=== PATIENT | female | born 1940 | race Caucasian/White ===

== ENCOUNTER 2019-10-01 15:20 | Inpatient (IN) | payer BC, OTHER ==
[~2019-10-01] VITALS: Ht 154.9 cm; Wt 33.5 kg
[2019-10-01] MEDS ORDERED: SODIUM CHLORIDE 0.9% 1,000 ML IVB ONE (16:20)
[2019-10-01 16:34] LABS: Basophils # (auto) 0 10 ^3/uL (0-0.2); Basophils % (auto) 0.4 % (0.0-2.0); Eosinophils # (auto) 0 10 ^3/uL (0-0.8); Eosinophils % (auto) 0.5 % (0.0-7.0); Hematocrit 46.3 % (36.0-46.0); Hemoglobin 15.2 g/dL (12.2-16.2); Lymphocytes # (auto) 0.6 10 ^3/uL (0.4-5.4); Lymphocytes % (auto) 6.8 % (10.0-50.0); Mean Corpuscular Hemoglobin 32.7 pg (28.0-32.0); Mean Corpuscular Hgb Conc. 32.7 g/dL (32.0-36.0); Mean Corpuscular Volume 99.9 fL (80.0-100.0); Monocytes # (auto) 0.4 10 ^3/uL (0-1.3); Monocytes % (auto) 5.1 % (0.0-12.0); Neutrophils # (auto) 7.6 10 ^3/uL (1.6-8.6); Neutrophils % (auto) 87.2 % (37.0-80.0); Platelet Count (auto) 244 10^3/uL (140-450); Red Blood Cells 4.64 10^6/uL (4.0-5.20); Red Cell Distribution Width 15.2 % (11.8-14.3); White Blood Cell 8.8 10^3/uL (4.4-10.8)
[2019-10-01 16:42] LABS: Albumin 3.4 g/dL (3.4-5.0); Calcium 8.6 mg/dL (8.5-10.1); Potassium 3.6 mmol/L (3.5-5.1)
[2019-10-01 16:43] LABS: INR 1.09 (0.9-1.15)
[2019-10-01 16:47] LABS: BUN/Creatinine Ratio 55.6; Bilirubin, Total 0.7 mg/dL (0.2-1.0); Total Protein 6.6 g/dL (6.4-8.2)
[2019-10-01 17:12] LABS: Magnesium 1.6 mg/dL (1.6-2.6)
[2019-10-01] MEDS ORDERED: NITROGLYCERIN 0.4 MG SL TAB SL PRN ×2 (18:30→23:30)
[2019-10-01] MEDS ORDERED: MORPHINE SULF INJ 2 MG/ML SYRINGE 1ML IV PRN ×2 (18:30→23:30)
[2019-10-01] MEDS ORDERED: NICOTINE 21MG/24 HR TOPICAL PATCH TD ONE (19:15)
[2019-10-01 19:45] VITALS: BP 163/77
--- NOTE | 2019-10-01 19:45 | NUR ---
Telemetry admit from ER DOMONIQUE SHETH admitted to Telemetry unit after SBAR received. Patient oriented to CRISTOFER NIELSEN, RN primary RN,[place] unit, room 295, bed A, and unit policies regarding patient care and visiting hours. Patient now on continuous telemetry monitoring, tele box #72 and telemetry reading on arrival to unit is NSR 87. Patient placed on bedside oxygen, weighed by bed scale and encouraged to call if they need something. All questions and concerns addressed, patient verbalized understanding. Note: Patient admitted with left hip fracture. She is alert and oriented of person, Place, time and situation. No edema noted to left lower extremity. Patient able to wiggle left toes without difficulty. Complains of left hip pain with movement only. Bed in low position and call light in reach.
--- NOTE | 2019-10-01 21:00 | NUR ---
Napoles catheter insertion Admission's order included Napoles Catheter insertion. Patient educated on catheter and reason for insertion. All questions answered. Napoles catheter 16 gauge Arabic inserted with clean sterile technique. Patient tolerated well.
[2019-10-01 22:00] VITALS: BP 163/77
[2019-10-01 22:16] LABS: Urine Bacteria FEW /hpf (None Seen); Urine Blood TRACE /uL (Negative); Urine Mucus FEW (None Seen); Urine Specific Gravity 1.026 (1.001-1.035); Urine WBC 5 /hpf (0 - 5)
[2019-10-01] MEDS ORDERED: CALCIUM W/VIT D (600MG/400IU) TAB PO ONE (23:30)
[2019-10-01] MEDS ORDERED: HYDROcodone-ACET 5/325MG TAB PO PRN (23:30)
[2019-10-01] MEDS ORDERED: hydrALAZINE HCL 20 MG/ML VL IV PRN (23:30)
[2019-10-01] MEDS ORDERED: DOCUSATE SOD 100 MG CAP PO PRN (23:30)
[2019-10-01] MEDS ORDERED: cefTRIAXone 1GM/50ML D5W 50 ML IV ONE (23:30)
[2019-10-01] MEDS ORDERED: FAMOTIDINE 20 MG TAB PO ONE (23:30)
[2019-10-01] MEDS ORDERED: TEMAZEPAM 15 MG CAP PO PRN (23:30)
[2019-10-01] MEDS ORDERED: ONDANSETRON HCL 4 MG/2 ML VIAL IV PRN (23:30)
[2019-10-01] MEDS: SODIUM CHLORIDE 0.9% 1,000 ML IV SCH (23:30)
[2019-10-01] MEDS ORDERED: ALUM & MAG HYDROX-SIMETH LIQ(MAALOX) 30 ML PO PRN (23:30)
[2019-10-01] MEDS ORDERED: ACETAMINOPHEN 325 MG TAB PO PRN (23:30)
[2019-10-01 23:41] VITALS: BP 163/77
[2019-10-01] MEDS ORDERED: MAGNESIUM SULFATE 1GM/100ML 100 ML IV ONE (23:45)
[2019-10-01] MEDS ORDERED: IPRATROPIUM BROM 0.5 MG/2.5ML INH SOL NEB PRN (23:45)
[2019-10-01] MEDS ORDERED: ALBUTEROL SULF 2.5 MG/0.5ML(0.5%) NEB SOLN NEB PRN (23:45)
[2019-10-02 01:20] LABS: Cholesterol 166 mg/dL (< 200); HDL Cholesterol 42 mg/dL (40-59); LDL Cholesterol 112 mg/dL (< 100); Triglycerides 118 mg/dL (< 150)
[2019-10-02 05:00] VITALS: BP 124/70
[2019-10-02 06:06] LABS: Basophils # (auto) 0 10 ^3/uL (0-0.2); Basophils % (auto) 0.6 % (0.0-2.0); Eosinophils # (auto) 0.2 10 ^3/uL (0-0.8); Eosinophils % (auto) 2.5 % (0.0-7.0); Hematocrit 40.4 % (36.0-46.0); Hemoglobin 13.4 g/dL (12.2-16.2); Lymphocytes % (auto) 12.1 % (10.0-50.0); Mean Corpuscular Hemoglobin 32.7 pg (28.0-32.0); Mean Corpuscular Hgb Conc. 33.1 g/dL (32.0-36.0); Mean Corpuscular Volume 98.9 fL (80.0-100.0); Monocytes # (auto) 0.6 10 ^3/uL (0-1.3); Monocytes % (auto) 7.2 % (0.0-12.0); Neutrophils # (auto) 6.2 10 ^3/uL (1.6-8.6); Neutrophils % (auto) 77.6 % (37.0-80.0); Platelet Count (auto) 227 10^3/uL (140-450); Red Blood Cells 4.08 10^6/uL (4.0-5.20)
[2019-10-02 06:22] LABS: INR 1.08 (0.9-1.15); Partial Thromboplastin Time 27.4 sec (23.0-31.2)
[2019-10-02 06:56] LABS: Albumin 2.6 g/dL (3.4-5.0); BUN/Creatinine Ratio 71.1; Bilirubin, Total 0.5 mg/dL (0.2-1.0); Calcium 7.7 mg/dL (8.5-10.1); Magnesium 1.7 mg/dL (1.6-2.6); Phosphorus 2.7 mg/dL (2.5-4.90); Potassium 3.1 mmol/L (3.5-5.1); Total Protein 5.4 g/dL (6.4-8.2)
--- NOTE | 2019-10-02 07:00 | NUR ---
Opening Shift Note Assumed care of patient, awake and alert. No S/S of distress/SOB or pain. Instructed on POC and to call for assist PRN, will continue to monitor for changes Q1hr and PRN.
--- NOTE | 2019-10-02 07:00 | NUR ---
Patient resting comfortably in bed with good body alignment. No acute distress noted. Will endorse patient's status to day shift RN.
--- NOTE | 2019-10-02 07:41 | NUR ---
assessed pt asked her if MD Lopez discussed surgery with her for her hip "no doctor has come her to talk to me about anything" unable to obtain cinsent, attempted to call OR to see if patient is on the schedule today, no answer will call later
[2019-10-02] MEDS: Ensure Enlive Strawberry 8oz Bottle PO SCH ×3 (08:00→17:07)
[2019-10-02] MEDS: CALCIUM W/VIT D (600MG/400IU) TAB PO SCH ×2 (08:00→17:07)
[2019-10-02] MEDS: MAGNESIUM OXIDE 400 MG TAB PO SCH ×2 (08:04→21:25)
--- NOTE | 2019-10-02 08:08 | NUR ---
md donovan at station asked for an update on plan of care, pt will have surgery tomorrow she is not cleared for today, resume diet NPO midnight
[2019-10-02 09:00] VITALS: BP 144/70
[2019-10-02] MEDS: cefTRIAXone 1GM/50ML D5W 50 ML IV SCH (09:00)
[2019-10-02] MEDS: SODIUM CHLORIDE 0.9% 1,000 ML IV SCH ×2 (09:30→17:07)
[2019-10-02] MEDS: POTASSIUM CHL 20 Meq TABLET PO SCH ×2 (09:39→21:25)
[2019-10-02] MEDS: FAMOTIDINE 20 MG TAB PO SCH (09:39)
[2019-10-02] MEDS ORDERED: ENOXAPARIN SOD 30 MG/0.3 ML SYRINGE SC SCH (10:00)
--- NOTE | 2019-10-02 11:00 | NUR ---
WOUND CARE NOTE: IN TO SEE PATIENT AT THIS TIME D/T PATIENT'S LOW KUNAL SCORE OF 11. PATIENT WAS ADMITTED TO [facility] WITH DIAGNOSIS OF DISPLACED FX, LEFT FEMUR NECK. PATIENT STATES SHE WILL BE UNDERGOING ORTHO SURGERY IN AM. PATIENT IS OBSERVED TO BE ABLE TO ASSIST WITH HER TURNING/REPOSITIONING. SHE IS VERY THIN WITH PROMINENT COCCYX. THIS AREA IS RED BUT BLANCHES. UNABLE TO ORDER AIR MATTRESS D/T HER HIP FRACTURE STATUS. ADVISED BEDSIDE NURSE TO APPLY A KOLTON BOOT TO LEFT HEEL, SHE HAS THE LEFT HIP FRACTURE, AND CANNOT LIFT HEEL UP OFF THE BED. NO OTHER SKIN INTEGRITY ISSUES SEEN AT THIS TIME. RECOMMEND: FREQUENT TURN SCHEDULE, AVOIDING LEFT SIDED POSITIONING, BID/PRN APPLICATION WITH MOISTURE BARRIER CREAM, OPTIFOAM GENTLE SACRAL DRESSING, SKIN/WOUND CARE PLAN, KOLTON FOAM BOOT TO LEFT HEEL, DIETARY CONSULT, CONTINUED MONITORING BY WOUND CARE TEAM.
[2019-10-02 13:00] VITALS: BP 105/66
--- NOTE | 2019-10-02 15:56 | NUR ---
IV insertion IV access obtained, via clean sterile technique by inserting 22 gauge catheter at after attempt(s). IV secured properly. No trauma to site. Patient tolerated well. NOTE:
--- NOTE | 2019-10-02 15:57 | NUR ---
IV removal IV DC'd with clean sterile technique, catheter fully intact. Pressure dressing applied to site. Patient tolerated well. NOTE:
[2019-10-02 17:00] VITALS: BP 142/74
--- NOTE | 2019-10-02 18:16 | NUR ---
PT ASSESSED FOR PRN MED NEB TX. SPO2 98% ON 3L NC, HR 86. PT DENIES ANY RESPIRATORY DISTRESS. NO TX INDICATED. PT IS AWARE TO HAVE RT PAGED IF TX NEEDED.
--- NOTE | 2019-10-02 20:00 | NUR ---
Opening Shift Note Assumed care of patient, awake and alert. No S/S of distress/SOB or pain. Instructed on POC and to call for assist PRN, will continue to monitor for changes Q1hr and PRN.Patient said she will sign the consent tomorrow after the doctor talk to her.
[2019-10-02 22:26] VITALS: BP 143/78
[2019-10-03] MEDS: SODIUM CHLORIDE 0.9% 1,000 ML IV SCH (05:01)
[2019-10-03 05:27] VITALS: BP 125/66
[2019-10-03 06:39] LABS: Basophils # (auto) 0.1 10 ^3/uL (0-0.2); Basophils % (auto) 0.6 % (0.0-2.0); Eosinophils # (auto) 0.2 10 ^3/uL (0-0.8); Eosinophils % (auto) 2.2 % (0.0-7.0); Hematocrit 43.1 % (36.0-46.0); Hemoglobin 14.5 g/dL (12.2-16.2); Lymphocytes # (auto) 0.7 10 ^3/uL (0.4-5.4); Mean Corpuscular Hemoglobin 33.5 pg (28.0-32.0); Mean Corpuscular Hgb Conc. 33.6 g/dL (32.0-36.0); Mean Corpuscular Volume 99.8 fL (80.0-100.0); Monocytes # (auto) 0.6 10 ^3/uL (0-1.3); Monocytes % (auto) 6.2 % (0.0-12.0); Neutrophils # (auto) 7.6 10 ^3/uL (1.6-8.6); Platelet Count (auto) 248 10^3/uL (140-450); Red Blood Cells 4.32 10^6/uL (4.0-5.20); Red Cell Distribution Width 14.4 % (11.8-14.3); White Blood Cell 9.2 10^3/uL (4.4-10.8)
[2019-10-03 07:07] LABS: BUN/Creatinine Ratio 33.3; Magnesium 1.4 mg/dL (1.6-2.6)
[2019-10-03 07:18] LABS: Urine Bacteria FEW /hpf (None Seen); Urine Blood 1+ /uL (Negative); Urine Mucus FEW (None Seen); Urine Specific Gravity 1.013 (1.001-1.035); Urine WBC 3 /hpf (0 - 5)
--- NOTE | 2019-10-03 07:33 | NUR ---
PRN MN TX NOT INDICATED AT THIS TIME. PT IS AWAKE AND ALERT. PT ON 2L/MIN VIA NC. 96% O2 SATS, HR 78 BPM, RR18 BPM, BS ARE CLEAR TO AUSCULTATION. RESPIRATION IS EVEN AND NON LABORED. NO SOB OR ANY OTHER RESPIRATORY DISTRESS NOTICED. WILL CONTINUE TO MONITOR PT.
--- NOTE | 2019-10-03 07:48 | NUR ---
Care report given to Watson Spence, patient is resting no distress, NPO maintained, need cardiac clearance and signing the consent.
[2019-10-03] MEDS: CALCIUM W/VIT D (600MG/400IU) TAB PO SCH ×2 (07:58→18:06)
[2019-10-03] MEDS: Ensure Enlive Strawberry 8oz Bottle PO SCH ×3 (07:58→17:41)
[2019-10-03 07:59] LABS: Alcohol, Urine < 3.0 mg/dL (0-10); Amphetamine Screen, Urine NEGATIVE (NEGATIVE); Barbiturate Scree,Urine NEGATIVE (NEGATIVE); Benzodiazephine Screen, Urine NEGATIVE (NEGATIVE); Cannabinoid Screen, Urine NEGATIVE (NEGATIVE); Cocaine Screen, Urine NEGATIVE (NEGATIVE); Opiate Scree,Urine NEGATIVE (NEGATIVE); Phencyclidine Screen, Urine NEGATIVE (NEGATIVE)
--- NOTE | 2019-10-03 08:14 | NUR ---
Report Report given to Vikki. Pt is a/ox4 with no s/s of distress. All questions answered.
[2019-10-03] MEDS: cefTRIAXone 1GM/50ML D5W 50 ML IV SCH (09:04)
[2019-10-03 09:08] VITALS: BP 132/72
[2019-10-03] MEDS: MAGNESIUM OXIDE 400 MG TAB PO SCH ×2 (10:00→22:00)
[2019-10-03] MEDS: POTASSIUM CHL 20 Meq TABLET PO SCH ×2 (10:00→21:59)
[2019-10-03] MEDS: FAMOTIDINE 20 MG TAB PO SCH (10:00)
[2019-10-03] MEDS: MAGNESIUM SULFATE 1GM/100ML 100 ML IV SCH ×2 (11:11→11:50)
[2019-10-03] MEDS ORDERED: TETRACAINE 1% INJ 2 ML VIAL IJ ONE (11:47)
[2019-10-03] MEDS ORDERED: ceFAZolin 1GM/50ML 50 ML IV ONE (12:00)
[2019-10-03] MEDS ORDERED: MEPERIDINE HCL (25 MG/ML) 1ML VIAL ONE (12:02)
[2019-10-03] MEDS ORDERED: fentaNYL CITRATE 100 MCG/2 ML VL ONE (12:02)
[2019-10-03] MEDS ORDERED: MIDAZOLAM HCL 1MG/1ML-2 ML VIAL ONE ×2 (12:03→13:10)
[2019-10-03] MEDS ORDERED: DexAMETHasone SOD PHOS 10MG/1ML VIAL INJ ONE (12:04)
[2019-10-03] MEDS ORDERED: PROPOFOL 10 MG/ML 20 ML IV ONE (12:25)
[2019-10-03] MEDS ORDERED: PHENYLEPHRINE HCL 10 MG/ML VL IV ONE (12:25)
[2019-10-03 12:32] VITALS: BP 131/61
[2019-10-03] MEDS ORDERED: diphenhdrAMINE HCL 50 MG/1 ML VL ONE (13:10)
[2019-10-03] MEDS ORDERED: ONDANSETRON HCL 4 MG/2 ML VIAL IV PRN (13:30)
[2019-10-03] MEDS ORDERED: LABETALOL HCL 5 MG/ML 4ML SYRINGE IV PRN (13:30)
[2019-10-03] MEDS ORDERED: MORPHINE SULFATE 4 MG/ML SYR/VIAL IV PRN (13:30)
[2019-10-03] MEDS ORDERED: HYDROmorphone HCL 2 MG/ML VL IV PRN (13:30)
[2019-10-03] MEDS ORDERED: ePHEDrine SULFATE 50 MG/ML AMP IV PRN (13:30)
[2019-10-03] MEDS ORDERED: MIDAZOLAM HCL 1MG/1ML-2 ML VIAL IV PRN (13:30)
[2019-10-03] MEDS: LACTATED RINGER'S 1,000 ML IV SCH (15:03)
[2019-10-03] MEDS: ceFAZolin 1GM/50ML 50 ML IV SCH ×2 (15:30→21:52)
--- NOTE | 2019-10-03 16:34 | NUR ---
Nutrition Assessment Notes Please refer to link for full assessment notes. Est Energy needs: 954-1097 kcals (20-23 kcal/kgIBW) Est Protein needs: 48-52 gms/day (1.0-1.1 gm/kgIBW) Will continue to monitor and reassess prn. Addendum: 10/03/19 at [address] Amended: Links added.
[2019-10-03 16:53] VITALS: BP 102/65
--- NOTE | 2019-10-03 18:00 | NUR ---
PT OFF FLOOR TO OR APPROX 1130, RETURNED TO FLOOR FROM PACU APPROX. 1500. PT DROWSY, EASILY AROUSABLE. 02 ON AT 2 LITERS N/C . CONTINUOUS PULSE OX IN PLACE, 02 SATS 99-100 %. PARIS CATHETER IN PLACE, DRAINING PALE YELLOW URINE. DRESSING TO LEFT HIP CLEAN DRY INTACT, WITH WOUND VAC IN PLACE. WILL CONTINUE TO MONITOR.
--- NOTE | 2019-10-03 19:40 | NUR ---
Opening Shift Note Assumed care of patient, awake and alert. Pt slightly confused. Pt states that she knows she is in the hospital but did not know why or "what is going on". Pt reoriented to situation and surroundings and verbalized understanding. No S/S of distress/SOB or pain. Safety measures in place, bed in lowest position, bed rails raised x2, call light within reach. Instructed on POC and to call for assist PRN, will continue to monitor for changes Q1hr and PRN.
[2019-10-03 22:00] VITALS: BP 74/42
[2019-10-03 23:32] VITALS: BP 111/63
--- NOTE | 2019-10-04 00:05 | NUR ---
Respiratory note: PT SEEN FOR PRN MED NEB TX AT 0005. TREATMENT IS NOT INDICATED AT THIS TIME. NO RESPIRATORY DISTRESS NOTED. HR 78 RR 16 SP02 99% ON 2L NASAL CANNULA. PT AWARE TO CALL FOR RESPIRATORY IF ANY DISTRESS OCCURS.
[2019-10-04] MEDS: LACTATED RINGER'S 1,000 ML IV SCH ×3 (01:03→21:03)
[2019-10-04] MEDS: ceFAZolin 1GM/50ML 50 ML IV SCH (03:25)
[2019-10-04 05:02] VITALS: BP 113/57
--- NOTE | 2019-10-04 05:50 | NUR ---
Luciano catheter dc'd Order to discontinue luciano catheter. Luciano dc'd with clean technique following deflation of balloon. Patient tolerated well with no complaints of pain. Continue care.
[2019-10-04 07:46] LABS: Hematocrit 35.1 % (36.0-46.0); Hemoglobin 11.7 g/dL (12.2-16.2)
[2019-10-04 08:00] VITALS: BP 101/48
[2019-10-04] MEDS: CALCIUM W/VIT D (600MG/400IU) TAB PO SCH ×2 (08:00→18:00)
[2019-10-04] MEDS: Ensure Enlive Strawberry 8oz Bottle PO SCH ×3 (08:00→18:00)
[2019-10-04 08:04] LABS: Albumin 2.1 g/dL (3.4-5.0); BUN/Creatinine Ratio 33.3; Calcium 7.2 mg/dL (8.5-10.1); Potassium 3.9 mmol/L (3.5-5.1)
[2019-10-04 08:16] LABS: Bilirubin, Total 0.5 mg/dL (0.2-1.0); Total Protein 4.6 g/dL (6.4-8.2)
[2019-10-04 09:16] VITALS: BP 101/48
[2019-10-04] MEDS: POTASSIUM CHL 20 Meq TABLET PO SCH ×2 (09:42→21:54)
[2019-10-04] MEDS: ENOXAPARIN SOD 40 MG/0.4 ML SYRINGE SC SCH (09:43)
[2019-10-04] MEDS: FAMOTIDINE 20 MG TAB PO SCH (09:43)
[2019-10-04] MEDS: cefTRIAXone 1GM/50ML D5W 50 ML IV SCH (09:43)
[2019-10-04] MEDS: MAGNESIUM OXIDE 400 MG TAB PO SCH ×2 (09:43→21:54)
[2019-10-04] MEDS: MORPHINE SULF INJ 2 MG/ML SYRINGE 1ML IV PRN (09:44)
--- NOTE | 2019-10-04 10:30 | NUR ---
Pt refused PT treatment at this time stating, "I just had morphine, I want to sleep." Pt was educated on importance of getting up, will attempt again later.
--- NOTE | 2019-10-04 11:56 | NUR ---
assessment Patient is a 79 year old female who is alert and oriented, but sleeping at this time. Per patients granddaughter Marianne prior to admission patient lived home alone and functioned with Marianne's assistance. Patient hs a fww and a cane for home use. Per Marianne patient has not seen a doctor in 4 years. Marianne informed me that her daughter was spending the night with patient and patient got up to check on her and she fell in the living room and fractured her hip. Marianne informed me she wants patient to go to rehab on discharge. Marianne informed me that after rehab patient will return home with her and her family. I informed Marianne I will continue to monitor and follow up as appropriate. Marianne verbalized understanding and agreed to discharge plan to SNF. Addendum: 10/04/19 at 1200 by Linnea ESTEVEZ Amended: Links added.
[2019-10-04 12:53] VITALS: BP 108/58
--- NOTE | 2019-10-04 16:00 | NUR ---
Rounds Patient is comfortably resting in bed, breath sounds even and unlabored. No c/o pain. Bed at lowest locked position and call light within reach. Will continue to monitor PRN.
[2019-10-04 16:30] VITALS: BP 95/60
--- NOTE | 2019-10-04 19:00 | NUR ---
CLOSING NOTE PATIENT IS SITTING IN BED, IV FLUIDS RUNNING AT 100MLS/HR. NO S/S OF DISTRESS/NOTED/STATED. BED AT LOWEST LOCKED POSITION AND CALL LIGHT WITHIN REACH. WILL ENDORSE CARE TO NOC RN.
--- NOTE | 2019-10-04 19:35 | NUR ---
Opening Shift Note Assumed care of patient, awake and alert. No S/S of distress/SOB. Safety measures in place, bed in lowest position, bed rails raised x2, call light within reach. Continuous pulse ox at bedside. Wound vac applied to left hip. Instructed on POC and to call for assist PRN, will continue to monitor for changes Q1hr and PRN.
--- NOTE | 2019-10-04 20:00 | NUR ---
IV removal IV noted to be leaking. IV DC'd with clean sterile technique, catheter fully intact. Pressure dressing applied to site. Patient tolerated well.
--- NOTE | 2019-10-04 20:05 | NUR ---
IV insertion IV access obtained, via clean sterile technique by inserting 22 gauge catheter at the left AC after 1 attempt. IV secured properly. No trauma to site. Patient tolerated well.
--- NOTE | 2019-10-04 21:20 | NUR ---
Respiratory note: PT ASSESSED FOR PRN MED NEB TX. HR 93, RR 18, SPO2 97% ON 2L NC. NO S/S OF ANY RESPIRATORY DISTRESS NOTED. ADVISED PT TO CALL IF TX IS NEEDED.
[2019-10-04 22:00] VITALS: BP 89/44
--- NOTE | 2019-10-04 22:00 | NUR ---
Pt refused linen change Pt bed pads noted to be soiled with urine. Attempt was made to change pt bedding, pt refused and said that she did "not want to do that right now" and to "just let her sleep". Pt educated on the complications of leaving the wet linen under her, pt verbalized understanding and refused. Will attempt again and continue to monitor.
[2019-10-05] VITALS (7 sets, daily range): BP systolic 77–132; BP diastolic 41–64
--- NOTE | 2019-10-05 05:59 | NUR ---
Respiratory note: PT ASSESSED FOR PRN MED NEB TX. HR 95, RR 16, SPO2 91% ON RA. NO S/S OF ANY RESPIRATORY DISTRESS NOTED.BS ARE CLEAR AND DIMINISHED, NO INDICATION FOR TX AT THIS TIME. ADVISED PT TO CALL IF TX IS NEEDED.
--- NOTE | 2019-10-05 06:30 | NUR ---
Per construction or leak gang laborer, pt refused morning lab draw. Tech stated she would come back in a couple hours to try again.
[2019-10-05] MEDS: LACTATED RINGER'S 1,000 ML IV SCH ×2 (07:03→17:03)
--- NOTE | 2019-10-05 07:40 | NUR ---
opening shift note Patient is comfortable sleeping, no s/s of distress noted. Breath sounds are even and unlabored. Bed at lowest locked position and call light within reach. Will continue to monitor.
[2019-10-05] MEDS: CALCIUM W/VIT D (600MG/400IU) TAB PO SCH ×2 (08:00→18:00)
[2019-10-05] MEDS: Ensure Enlive Strawberry 8oz Bottle PO SCH ×3 (08:00→18:00)
--- NOTE | 2019-10-05 09:35 | NUR ---
DR. ENGEL AT BEDSIDE.
--- NOTE | 2019-10-05 09:40 | NUR ---
Patient soiled the bed, cleansed patient's yesenia-area and completed a linen change with help from SREE Hernández. Bed at lowest locked position and call light within reach . Will continue to monitor.
[2019-10-05] MEDS: POTASSIUM CHL 20 Meq TABLET PO SCH ×2 (09:56→21:45)
[2019-10-05] MEDS: cefTRIAXone 1GM/50ML D5W 50 ML IV SCH (09:57)
[2019-10-05] MEDS: FAMOTIDINE 20 MG TAB PO SCH (09:57)
[2019-10-05] MEDS: ENOXAPARIN SOD 40 MG/0.4 ML SYRINGE SC SCH (09:57)
[2019-10-05] MEDS: MAGNESIUM OXIDE 400 MG TAB PO SCH ×2 (09:57→21:45)
[2019-10-05] MEDS: MORPHINE SULF INJ 2 MG/ML SYRINGE 1ML IV PRN ×2 (09:58→21:53)
--- NOTE | 2019-10-05 10:28 | NUR ---
Pain re-assessment No c/o pain. patient comfortably resting in bed.
[2019-10-05 10:37] LABS: Basophils # (auto) 0 10 ^3/uL (0-0.2); Basophils % (auto) 0.2 % (0.0-2.0); Eosinophils # (auto) 0.1 10 ^3/uL (0-0.8); Eosinophils % (auto) 0.8 % (0.0-7.0); Hematocrit 34.9 % (36.0-46.0); Hemoglobin 11.5 g/dL (12.2-16.2); Lymphocytes # (auto) 0.5 10 ^3/uL (0.4-5.4); Lymphocytes % (auto) 7.7 % (10.0-50.0); Mean Corpuscular Hemoglobin 32.9 pg (28.0-32.0); Mean Corpuscular Hgb Conc. 32.8 g/dL (32.0-36.0); Mean Corpuscular Volume 100.4 fL (80.0-100.0); Monocytes # (auto) 0.5 10 ^3/uL (0-1.3); Monocytes % (auto) 8.3 % (0.0-12.0); Neutrophils # (auto) 5.3 10 ^3/uL (1.6-8.6); Platelet Count (auto) 202 10^3/uL (140-450); Red Blood Cells 3.48 10^6/uL (4.0-5.20); Red Cell Distribution Width 14.5 % (11.8-14.3); White Blood Cell 6.3 10^3/uL (4.4-10.8)
[2019-10-05 10:55] LABS: Calcium 7.6 mg/dL (8.5-10.1); Magnesium 1.6 mg/dL (1.6-2.6); Potassium 3.5 mmol/L (3.5-5.1)
--- NOTE | 2019-10-05 11:50 | NUR ---
Patient refusing to turn.Patient educated on importance of turning Q2 hours. Will try again.
--- NOTE | 2019-10-05 12:25 | NUR ---
Patient refused Physical Therapy again. Patient educated and encouraged to walk, patient verbalized understanding and asked to be left alone, please. Will continue to monitor
--- NOTE | 2019-10-05 15:44 | NUR ---
D/C Planning Regarding social service consult for SNF placement. Faxed clinical information to [facility] and [facility]. DALY Kruse will obtain authorization for accepting facility. Per DALY Kruse patient health plan authorized stay to [facility]. Placed follow up called to Gloria with [facility]:). Per Gloria patient has been accepted to room 24a accepting Md, Dr. Waller. [facility] is ON WILL CALL.
--- NOTE | 2019-10-05 16:00 | NUR ---
Patient refusing to turn.Patient educated on importance of turning Q2 hours. Patient verbalized understanding. Will try again.
--- NOTE | 2019-10-05 19:00 | NUR ---
Care endorsed to NOC RN.
--- NOTE | 2019-10-05 19:05 | NUR ---
RT NOTE; PT ASSESSED FOR PRN MED NEB TX, PT DENIES SOB AT THIS TIME. PT ON 2LPM NC SPO2 94% HR 81, RR 16. NO TX INDICATED AT THIS TIME.
--- NOTE | 2019-10-05 19:40 | NUR ---
Opening Shift Note Assumed care of patient, awake and alert. No S/S of distress/SOB or pain. Wound vac noted at incision site. Pt refusing to eat or work with PT. Pt encouraged to eat and educated that eating and activity is what she needs to do in order to feel better and be discharged. Pt verbalized understanding and states she will try to eat a snack later. Per day RN, plans to discharge to SNF tomorrow. Safety measures in place, bed in lowest position, bed rails raised x2, call light within reach. Instructed on POC and to call for assist PRN, will continue to monitor for changes Q1hr and PRN.
--- NOTE | 2019-10-05 22:30 | NUR ---
Pt requested a sandwich to eat. Pt consumed 1/2 of sandwich and stated she would save the other half for later. Pt tolerated well. Pt resumed resting comfortably.
[2019-10-06] MEDS: LACTATED RINGER'S 1,000 ML IV SCH ×3 (03:03→23:04)
--- NOTE | 2019-10-06 05:15 | NUR ---
Pt refused vital signs, linen change and lab draw. All care will be attempted again in a few hours. Pt has a trend of not wanting to be woken up. Does better once awake for the day.
[2019-10-06] MEDS: Ensure Enlive Strawberry 8oz Bottle PO SCH ×3 (07:56→18:22)
[2019-10-06] MEDS: CALCIUM W/VIT D (600MG/400IU) TAB PO SCH ×2 (08:00→18:22)
[2019-10-06 09:00] VITALS: BP 108/42
[2019-10-06] MEDS: cefTRIAXone 1GM/50ML D5W 50 ML IV SCH (09:00)
[2019-10-06 10:56] LABS: Basophils # (auto) 0 10 ^3/uL (0-0.2); Basophils % (auto) 0.3 % (0.0-2.0); Eosinophils # (auto) 0.1 10 ^3/uL (0-0.8); Eosinophils % (auto) 1.8 % (0.0-7.0); Hematocrit 31.9 % (36.0-46.0); Hemoglobin 10.7 g/dL (12.2-16.2); Lymphocytes # (auto) 0.7 10 ^3/uL (0.4-5.4); Lymphocytes % (auto) 10.8 % (10.0-50.0); Mean Corpuscular Hemoglobin 33.6 pg (28.0-32.0); Mean Corpuscular Hgb Conc. 33.6 g/dL (32.0-36.0); Mean Corpuscular Volume 99.9 fL (80.0-100.0); Monocytes # (auto) 0.6 10 ^3/uL (0-1.3); Neutrophils # (auto) 4.8 10 ^3/uL (1.6-8.6); Neutrophils % (auto) 77.1 % (37.0-80.0); Nucleated Red Blood Cells % 0.1 %; Platelet Count (auto) 206 10^3/uL (140-450); Red Blood Cells 3.19 10^6/uL (4.0-5.20); Red Cell Distribution Width 14.6 % (11.8-14.3); White Blood Cell 6.2 10^3/uL (4.4-10.8)
[2019-10-06] MEDS: POTASSIUM CHL 20 Meq TABLET PO SCH ×2 (11:16→22:10)
[2019-10-06] MEDS: ENOXAPARIN SOD 40 MG/0.4 ML SYRINGE SC SCH (11:17)
[2019-10-06] MEDS: FAMOTIDINE 20 MG TAB PO SCH (11:17)
[2019-10-06] MEDS: MAGNESIUM OXIDE 400 MG TAB PO SCH ×2 (11:17→22:10)
[2019-10-06 11:25] LABS: BUN/Creatinine Ratio 66.7; Calcium 7.6 mg/dL (8.5-10.1); Magnesium 1.6 mg/dL (1.6-2.6); Potassium 3.8 mmol/L (3.5-5.1)
[2019-10-06 13:00] VITALS: BP 97/52
--- NOTE | 2019-10-06 13:53 | NUR ---
Nutrition Followup Notes Pt wt is 40.0 kg Pt was awake sitting up in a chair with no relatives at bedside when rounded this morning. Pt is with a Regular diet, appetite is poor aeb ave 12% PO intake over 5 meals. Encouraged pt to increase her PO intake, she said she will is ready to eat more. Will continue to monitor PO status, skin status, pertinent labs and weight trends. Will f/u in 3-5 days. Est Energy needs: 954-1097 kcals (20-23 kcal/kgIBW) Est Protein needs: 48-52 gms/day (1.0-1.1 gm/kgIBW) Will continue to monitor and reassess prn. LABS: CA 7.6 L, ALB 2.1 L GI: Pt had 1 BM on 10/02 per RN doc BS: 13 mod risk Refer to wound assessment report for full details. PES: 1) Inadequate oral intake r/t pt with very poor appetite aeb 13% PO intake over 2 meals 2) Malnutrition r/t pt Hx of depression and low appetite aeb 69% IBW and BMI of 13.7 kg/m2 Comments Will continue to monitor PO status, skin status, pertinent labs and weight trends. Will f/u in 3-5 days. 1) Continue to closely monitor pt PO intake to meet at least 75% of meals 2) Continue current plan of care
[2019-10-06 17:00] VITALS: BP 134/66
[2019-10-06] MEDS: MORPHINE SULF INJ 2 MG/ML SYRINGE 1ML IV PRN (18:37)
--- NOTE | 2019-10-06 19:30 | NUR ---
Opening Shift Note Received report from Lora RICHARDSON. Assumed care of patient, awake and alert. No S/S of distress/SOB or pain. Instructed on POC and to call for assist PRN. Fall precaution measures in place, will continue to monitor for changes Q1hr and PRN.
[2019-10-06 22:00] VITALS: BP 104/62
[2019-10-07 04:00] VITALS: BP 126/58
[2019-10-07] MEDS: CALCIUM W/VIT D (600MG/400IU) TAB PO SCH (08:26)
[2019-10-07] MEDS: Ensure Enlive Strawberry 8oz Bottle PO SCH ×2 (08:27→12:00)
[2019-10-07 09:00] VITALS: BP 149/76
[2019-10-07] MEDS: LACTATED RINGER'S 1,000 ML IV SCH (09:03)
[2019-10-07] MEDS: cefTRIAXone 1GM/50ML D5W 50 ML IV SCH (09:11)
[2019-10-07] MEDS: MAGNESIUM OXIDE 400 MG TAB PO SCH (09:11)
[2019-10-07] MEDS: FAMOTIDINE 20 MG TAB PO SCH (09:11)
[2019-10-07] MEDS: ENOXAPARIN SOD 40 MG/0.4 ML SYRINGE SC SCH (09:11)
[2019-10-07] MEDS: POTASSIUM CHL 20 Meq TABLET PO SCH (09:11)
[2019-10-07] MEDS: MORPHINE SULF INJ 2 MG/ML SYRINGE 1ML IV PRN (11:11)
[2019-10-07 13:00] VITALS: BP 129/73
--- NOTE | 2019-10-07 14:27 | NUR ---
PATIENT REFUSED PT. DEBRA PENA WAS NOTIFIED. Addendum: 10/07/19 at 1428 by JORDANA CONKLIN PTT Amended: Links added.
[2019-10-07 16:08] VITALS: BP 129/73
--- NOTE | 2019-10-07 16:53 | NUR ---
CALLED [facility] WITH ETA 1800.
--- NOTE | 2019-10-07 17:06 | NUR ---
CALLED REPORT TO DEBRA ALMAGEUR AT [facility].
--- NOTE | 2019-10-07 17:15 | NUR ---
ATTEMPTED TO CALL DAVID THE DAUGHTER TO INFORM PT WILL BE TRANSFERRED TO [facility] BUT NO ANSWER. PER PT SHE WILL CALL HER DAUGHTER.
[2019-10-07 17:22] VITALS: BP 95/51
--- NOTE | 2019-10-07 17:26 | NUR ---
spoke with Mimi made aware pt will be transferred to [facility] at 1800.
--- NOTE | 2019-10-07 18:25 | NUR ---
Discharge to [facility], instructions given as ordered. Encourage to follow up with Dr. Cesar in 1 week as instructed. All questions and concerns addressed. Patient verbalized understanding. Medication reconciliation form completed and copy given to patient. IV removed with catheter intact, pressure dressing applied. Telemetry unit returned to ICU. Patient taken to vehicle via gurney with all personal belongings, accompanied by [facility] staff . No distress noted at time of departure.
== END 2019-10-07 18:25 | DRG 469 ==
LOC: ER 15:20 → EDBD 15:20 → TELE-WESTW 15:21
PROVIDERS: ADMIT Hospitalist; ATTEND Internal Medicine
PROC: 0SRS0JZ Replacement of Left Hip Joint, Femoral Surface with Synthetic Substitute, Open Approach (ICD-10-PCS; principal; 2019-10-03 12:35)
DX: S72.012A Unspecified intracapsular fracture of left femur, initial encounter for closed fracture (principal); E43 Unspecified severe protein-calorie malnutrition; N39.0 Urinary tract infection, site not specified; Z68.1 Body mass index [BMI] 19.9 or less, adult; M81.0 Age-related osteoporosis without current pathological fracture; R62.7 Adult failure to thrive; R29.6 Repeated falls; J44.9 Chronic obstructive pulmonary disease, unspecified; Z74.01 Bed confinement status; E86.0 Dehydration; I95.1 Orthostatic hypotension; I10 Essential (primary) hypertension; G89.29 Other chronic pain; F17.210 Nicotine dependence, cigarettes, uncomplicated; J84.10 Pulmonary fibrosis, unspecified; E83.42 Hypomagnesemia; E87.6 Hypokalemia; M19.90 Unspecified osteoarthritis, unspecified site; Z53.20 Procedure and treatment not carried out because of patient's decision for unspecified reasons; W18.39XA Other fall on same level, initial encounter; Y93.89 Activity, other specified; Y92.89 Other specified places as the place of occurrence of the external cause; Y99.8 Other external cause status; Z11.59 Encounter for screening for other viral diseases; Z91.19 Patient's noncompliance with other medical treatment and regimen
CPT/HCPCS: 36415; 70450; 71045; 72170; 72192; 80048; 80053; 80061; 80307; 81001; 83735; 84100; 84443; 84484; 85014; 85018; 85025; 85610; 85730; 86850; 86900; 86901; 87040; 87086; 93005; 93306; 93886; 94760; 97110; 97116; 97163; 97530; A4565; G0378; J0690; J0696; J1100; J2250; J2704